=== PATIENT | female | born 1980 | race Caucasian/White ===

== ENCOUNTER 2017-09-22 12:22 | Day surgery (SDC) | payer OTHER ==
[~2017-09-22] VITALS: Ht 162.6 cm; Wt 95.3 kg
[~2017-09-22 12:22] MED LIST: Cortef5 MG PO; PROG100 TOP
== END 2017-09-22 16:06 | disposition home or self-care (01) ==
LOC: ORSCSDS 12:22
PROVIDERS: Obstetrics & Gynecology
PROC: 0U5F4ZZ Destruction of Cul-de-sac, Percutaneous Endoscopic Approach (ICD-10-PCS; principal; 2017-09-22 13:30)
PROC: 3E1P38X Irrigation of Female Reproductive using Irrigating Substance, Percutaneous Approach, Diagnostic (ICD-10-PCS; principal; 2017-09-22 13:30)
DX: N94.89 Other specified conditions associated with female genital organs and menstrual cycle (principal); N80.3 Endometriosis of pelvic peritoneum; K66.0 Peritoneal adhesions (postprocedural) (postinfection); E66.01 Morbid (severe) obesity due to excess calories; Z68.36 Body mass index [BMI] 36.0-36.9, adult
CPT/HCPCS: 88305; J0171; J0690; J1100; J1885; J2250; J2270; J2370; J2405; J2765; J3010; J7120

== ENCOUNTER 2019-12-07 23:18 | Emergency (ER) | payer OTHER ==
[~2019-12-07] VITALS: Ht 162.6 cm; Wt 95.2 kg
[2019-12-07] MEDS ORDERED: IBUP800 PO (23:55)
== END 2019-12-08 01:00 | disposition home or self-care (01) ==
LOC: ER 23:18
DX: T23.252A Burn of second degree of left palm, initial encounter (principal); T31.0 Burns involving less than 10% of body surface; Z88.7 Allergy status to serum and vaccine; Z88.8 Allergy status to other drugs, medicaments and biological substances; W34.19XA Accidental malfunction from other specified firearms, initial encounter
CPT/HCPCS: 16020; 99283-25; A9270

== ENCOUNTER 2020-10-13 09:02 | Inpatient (IN) | payer OTHER ==
[~2020-10-13] VITALS: Ht 162.6 cm; Wt 113.0 kg
[~2020-10-13 09:02] MED LIST changes: +IBUP800 PO; +OMEP20ER PO
[2020-10-13 10:24] LABS: BASOPHILS ABSOLUTE AUTO 0.04 K/mm3 (0.00-0.23); BASOPHILS PERCENT AUTO 0 % (0-2); EOSINOPHILS ABSOLUTE AUTO 0.12 K/mm3 (0.00-0.68); EOSINOPHILS PERCENT AUTO 1 % (0-6); Hematocrit 35.8 % (33.0-51.0); Hemoglobin 12.2 g/dL (11.5-16.0); IMMATURE GRAN ABSOLUTE AUTO 0.05 K/mm3 (0.00-0.10); IMMATURE GRAN PERCENT AUTO 1 % (0-1); LYMPHOCYTES ABSOLUTE AUTO 1.38 K/mm3 (0.84-5.20); LYMPHOCYTES PERCENT AUTO 14 % (21-46); MONOCYTES ABSOLUTE AUTO 0.68 K/mm3 (0.16-1.47); MONOCYTES PERCENT AUTO 7 % (4-13); Mean Corpuscular HGB 30.1 pg (26.0-34.0); Mean Corpuscular HGB Conc 34.1 g/dL (31.5-36.5); Mean Corpuscular Volume 88 fL (80-100); Mean Platelet Volume 10.6 fL (9.1-12.4); NEUTROPHILS PERCENT AUTO 78 % (41-73); Platelet Count 218 K/mm3 (150-400); RDW Coefficient Variation 13.1 % (11.7-14.2); RDW Standard Deviation 42.3 fL (35.1-46.3); Red Blood Cell Count 4.05 M/mm3 (3.80-5.20); White Blood Cell Count 10.17 K/mm3 (4.00-11.30)
[2020-10-13 13:13] LABS: PCO2 Cord - Arterial 76.1 mmHg (40-50); pH Cord - Arterial 7.06 (7.28-7.35)
[2020-10-13 13:14] LABS: PO2 Cord - Arterial < 16 mmHg (16-20)
--- NOTE | 2020-10-13 13:14 | NUR ---
10/13/20 1314 Kristine Thomas FEMALE DELIVERED VIA PRIMARY SECTION AT 1253. THERE WAS A LARGE AMOUNT OF BLOOD LOSS BEFORE . WAS TAKEN STRAIGHT FOR WARMER TO BE CARED FOR BY [facility] AND [facility]. SOPHIA RN AND ALEIDA RN CAME IN TO ASSIST WITH RESUSCITATION. WAS TAKEN TO NURSERY FOR FURTHER ASSESSMENT BY BUSINESS DEVELOPMENT AGENT AND FURTHER ASSISTANCE.
[2020-10-13 13:18] LABS: PCO2 Cord - Venous 63.3 mmHg (40-50); PO2 Cord - Venous < 28 mmHg (28-32); pH Umbilical Cord - Venous 7.13 (7.26-7.35)
--- NOTE | 2020-10-13 14:47 | NUR ---
HEMORRHAGE OCCURRED A RESULT OF PLACENTA PREVIA AND SECTION. SURGEON CUT THRU THE PLACENTA DURING THE INCISION INTO THE UTERUS AND THERE WAS COPIOUS AMOUNTS OF BLEEDING WITH AN EBL OF 1500. BLEEDING STABILIZED ONCE THE BABY AND PLACENTA WERE DELIVERED
--- NOTE | 2020-10-13 19:48 | NUR ---
[id number] FROM [facility], ASSUMED CARE OF PT AT THAT TIME
[2020-10-14 06:05] LABS: BASOPHILS ABSOLUTE AUTO 0.03 K/mm3 (0.00-0.23); BASOPHILS PERCENT AUTO 0 % (0-2); EOSINOPHILS ABSOLUTE AUTO 0.06 K/mm3 (0.00-0.68); EOSINOPHILS PERCENT AUTO 1 % (0-6); Hematocrit 25.6 % (33.0-51.0); Hemoglobin 8.6 g/dL (11.5-16.0); IMMATURE GRAN ABSOLUTE AUTO 0.04 K/mm3 (0.00-0.10); IMMATURE GRAN PERCENT AUTO 1 % (0-1); LYMPHOCYTES PERCENT AUTO 16 % (21-46); MONOCYTES ABSOLUTE AUTO 0.61 K/mm3 (0.16-1.47); MONOCYTES PERCENT AUTO 7 % (4-13); Mean Corpuscular HGB 30.4 pg (26.0-34.0); Mean Corpuscular HGB Conc 33.6 g/dL (31.5-36.5); Mean Corpuscular Volume 91 fL (80-100); Mean Platelet Volume 10.4 fL (9.1-12.4); NEUTROPHILS PERCENT AUTO 76 % (41-73); Platelet Count 190 K/mm3 (150-400); RDW Coefficient Variation 13.2 % (11.7-14.2); RDW Standard Deviation 43.4 fL (35.1-46.3); Red Blood Cell Count 2.83 M/mm3 (3.80-5.20); White Blood Cell Count 8.84 K/mm3 (4.00-11.30)
[2020-10-14] MEDS ORDERED: Percocet 5-3251 EACH PO (07:10)
[2020-10-14] MEDS ORDERED: IBUP800 PO (07:10)
[2020-10-14] MEDS ORDERED: PRENATAL TABLE1 EAC2 PO (07:10)
--- NOTE | 2020-10-15 11:19 | NUR ---
Pt extremely tearful and anxious about feeding. I had a very long conversation with her if was more difficult for her or caused her too much anxiety it was ok for her to stricly bottle feed as long as her baby ate some how. Pt receptive to this. states that she has not slept at all and is exhausted. encouraged to rest and relax and take a shower. Pt less tearful and able to calm down a bit after some support and relaxation techniques.
--- NOTE | 2020-10-15 11:23 | NUR ---
Reinforced medipore removed after pt shower. steri strips on and intact, small amt blood/drainage noted. encouraged pt to keep incision clean and dry especially after showering. pt back to bed
--- NOTE | 2020-10-15 13:55 | NUR ---
mother given dc instructions at length as well as provided with care book and formula/ booklet. Pt will follow up tomorrow here at [facility] at 11:00 for ppfu as well as wtih dr hernandez within a few weeks. Pt feels much better and states she feels good about going home and being in a less stressful environment with her baby and catch up on sleep. Pt verbalizes understanding and questions answered. She will call if any concerns or problems sooner.
--- NOTE | 2020-10-15 13:57 | NUR ---
scripts given for ibuprofen and percocet.
== END 2020-10-15 13:40 | disposition home or self-care (01) | DRG 788 ==
LOC: BC 09:02
PROVIDERS: ADMIT Obstetrics & Gynecology
PROC: 10D00Z1 Extraction of Products of Conception, Low, Open Approach (ICD-10-PCS; principal; 2020-10-13 10:45)
DX: O14.14 Severe pre-eclampsia complicating childbirth (principal); O44.03 Complete placenta previa NOS or without hemorrhage, third trimester; Z3A.38 38 weeks gestation of pregnancy; Z37.0 Single live birth
CPT/HCPCS: 36415; 82803; 82947; 85025; 86850; 86900; 86901; A9270; J0690; J1885; J2590; J2765; J3010; J7120

== ENCOUNTER → 2024-04-20 | Outpatient (CLI) | payer OTHER ==
[~2024-04-20] MED LIST changes: +PRENATAL TABLE1 EAC2 PO; +Percocet 5-3251 EACH PO
[2024-04-24 05:55] LABS: CORTISOL,U FREE - RATIO TO CRT 17.79 ug/g CRT; CREATININE,URINE - PER 24H 1352 mg/d (700-1600); CREATININE,URINE - PER VOLUME 104 mg/dL; HOURS COLLECTED 24 hr; TOTAL VOLUME 1300 mL
== END ==
LOC: LAB 11:27 → LAB SHORT 11:27 → LAB FUT 04-15 16:20
PROVIDERS: Family Medicine
DX: R63.5 Abnormal weight gain (principal); R53.83 Other fatigue
CPT/HCPCS: 81050; 82530